=== PATIENT | female | born 1990 | race Caucasian/White ===

== ENCOUNTER 2021-05-13 06:26 | Emergency (ER) | payer MEDICAID ==
[~2021-05-13] VITALS: Ht 160 cm; Wt 120.2 kg
[~2021-05-13 06:26] MED LIST: DESYREL; PHENERGAN 25 MG25 MG PO; PROZAC40 MG; SEROQUEL 100 M100 MG
[2021-05-13] MEDS ORDERED: LIPITOR 20 MG T20 M1 PO (06:42)
[2021-05-13] MEDS ORDERED: LATUDA20 MG PO (06:42)
[2021-05-13] MEDS ORDERED: ZPAK PO (07:34)
[2021-05-13] MEDS ORDERED: VENTOLIN HFA 1818 GM INH (07:34)
[2021-05-13] MEDS ORDERED: DEXAMETHASONE 44 M1 PO (07:34)
[2021-05-13 07:45] VITALS: BP 149/74
== END 2021-05-13 07:45 | disposition home or self-care (01) ==
LOC: M.ERS 06:26
DX: U07.1 COVID-19 (principal); J45.901 Unspecified asthma with (acute) exacerbation; F32.9 Major depressive disorder, single episode, unspecified; F41.9 Anxiety disorder, unspecified; I10 Essential (primary) hypertension; E78.00 Pure hypercholesterolemia, unspecified; Z79.899 Other long term (current) drug therapy; Z88.0 Allergy status to penicillin

== ENCOUNTER 2021-06-09 22:29 | Emergency (ER) | payer MEDICAID ==
[~2021-06-09] VITALS: Ht 154.9 cm; Wt 114.3 kg
[~2021-06-09 22:29] MED LIST changes: +DEXAMETHASONE 44 M1 PO; +LATUDA20 MG PO; +LIPITOR 20 MG T20 M1 PO; +VENTOLIN HFA 1818 GM INH; +ZPAK PO
[2021-06-09 22:50] VITALS: BP 160/98
== END 2021-06-09 22:50 | disposition home or self-care (01) ==
LOC: M.ERS 22:29
DX: R59.1 Generalized enlarged lymph nodes (principal); F31.9 Bipolar disorder, unspecified; F41.9 Anxiety disorder, unspecified; I10 Essential (primary) hypertension; E78.00 Pure hypercholesterolemia, unspecified; Z79.899 Other long term (current) drug therapy; Z79.2 Long term (current) use of antibiotics; Z88.0 Allergy status to penicillin

== ENCOUNTER → 2021-09-29 | Emergency (ER) | payer MEDICAID ==
[~2021-09-29] VITALS: Ht 154.9 cm; Wt 111.1 kg
[2021-09-29 21:10] VITALS: BP 158/72
== END ==
LOC: M.ERS 21:04
DX: O46.91 Antepartum hemorrhage, unspecified, first trimester (principal); R10.30 Lower abdominal pain, unspecified; Z3A.10 10 weeks gestation of pregnancy; Z53.21 Procedure and treatment not carried out due to patient leaving prior to being seen by health care provider